=== PATIENT | female | born 1975 | race Caucasian/White ===

== ENCOUNTER → 2021-10-09 | Outpatient (CLI) | payer OTHER ==
[2021-10-09 10:13] LABS: RBC (AUTOMATED) 1000 10^6 (0); WBC (AUTOMATED 7 10^3 (0-5)
[2021-10-09 10:14] LABS: RBC (AUTOMATED) 100 10^6 (0); WBC (AUTOMATED 6 10^3 (0-5)
[2021-10-09 10:43] LABS: GLUCOSE,CSF 50 mg/dL (50-80); TOTAL PROTEIN,CSF 42 mg/dL (20-45)
[2021-10-11 18:09] LABS: MYELIN BASIC PROTEIN, CSF 18.8 ng/mL (0.0-3.7)
[2021-10-12 14:13] LABS: CSF IGG INDEX 1.4 (0.0-0.7); IMMUNOGLOBULIN G, QN, SERUM 1052 mg/dL (586-1602)
== END ==
LOC: RAD 07:26
PROVIDERS: Psychiatry & Neurology Neurology
DX: G35 Multiple sclerosis (principal)
CPT/HCPCS: 36415; 82040; 82784; 82945; 83873; 83916; 84157; 85049; 85610; 85730; 87015; 87070; 87116; 87205; 87210; 87252; 89051